=== PATIENT | female | born 1955 | race Caucasian/White ===

== ENCOUNTER 2016-10-10 18:43 | Inpatient (IN) | payer OTHER ==
[~2016-10-10] VITALS: Ht 154.9 cm; Wt 105.9 kg
[~2016-10-10 18:43] MED LIST: ALPRAZOLAM1 M1 PO; ALPRAZOLAM1 MG PO; ASPIRIN325 MG PO; BENTYL20 MG PO; CITRATE OF MAG296 ML PO; CLONAZEPAM0.5 M1 PO; CLONAZEPAM0.5 MG PO; COLACE100 MG PO; CYMBALTA60 MG PO; DOCUSATE SODIU100 MG PO; DULCOLAX5 MG PO; FIBER; FIBER LAXATIVE500 MG PO; FUROSEMIDE40 MG PO; GLIPIZIDE XL5 MG PO; HYDROMORPHONE HC4 MG PO; IMURAN100 MG IV; KEFLEX250 MG PO; KLONOPIN0.5 M1 PO; LASIX40 MG PO; METHADONE PO; METHADONE10 MG PO; MIRALAX255 GM PO; NEXIUM20 MG PO; NYSTATIN15 GM TP; OXYCODONE HCL5 MG PO; PEN-VEE K,VEET500 MG PO; POLYETHYLENE GLY1 GM MC; PRAVACHOL40 MG PO; PREDNISONE20 MG PO; STOOL SOFTENER; TIZANIDINE HCL4 MG PO; TRAZODONE HCL150 MG PO; VITAMIN E400 UNIT PO; XANAX1 MG PO; ZANAFLEX4 M1 PO; ZANTAC150 MG PO; ZITHROMAX500 MG PO; methadone PO
[2016-10-10 21:32] LABS: ADD MIUA? YES; BILIRUBIN NEGATIVE; BLOOD MODERATE; COLOR DK YELLOW ((YELLOW)); GLUCOSE (STRIP) NEGATIVE; KETONES NEGATIVE; LEUKOCYTES MODERATE; NITRITE NEGATIVE; PROTEIN (STRIP) 100; UROBILINOGEN 0.2 MG/DL (0.2-1.0)
[2016-10-10 22:24] LABS: BACTERIA 2+; CASTS NONE SEEN /LPF; CRYSTALS NONE SEEN; EPITHELIAL CELLS 1+; MUCUS 1+; RED BLOOD CELLS 0-5 /HPF (0-5); UCUL ADDED? YES; WHITE BLOOD CELLS 20-30 /HPF (0-5)
[2016-10-10 22:57] LABS: HEMATOCRIT 34.7 % (36.0-46.0); MCH 26.4 PG (29.0-34.0); MCHC 32.3 G/DL (30.0-36.0); MCV 81.8 FL (83-99); MEAN PLAT.VOLUME 9.6 uM^3 (9.5-12.4); PLATELET COUNT 142 K/uL (156-360); RBC DIS.WIDTH-CV 15.1 % (11.8-14.6); RBC DIS.WIDTH-SD 44.9 % (39-53); RED BLOOD COUNT 4.24 M/uL (3.80-5.20); WHITE BLOOD COUNT 15.3 K/uL (4.1-10.2)
[2016-10-10 23:10] LABS: CHLORIDE 98 mEq/L (99-109); POTASSIUM 3.3 mEq/L (3.7-5.4); SODIUM 133 mEq/L (136-147)
[2016-10-10 23:11] LABS: GLUCOSE 98 mg/dL (70-99)
[2016-10-10 23:13] LABS: ANION GAP 10 MEQ/L (2-14)
[2016-10-10 23:15] LABS: GFR ESTIMATE (CALCULATED) > 59 mL/min/
[2016-10-10 23:16] LABS: UREA NITROGEN (BUN) 19 mg/dL (9-23)
[2016-10-11 01:38] VITALS: BP 120/90
[2016-10-11 01:48] VITALS: BP 120/90
[2016-10-11 06:15] LABS: POINT-OF-CARE METER ID UU13113725
[2016-10-11 07:21] VITALS: BP 109/55
[2016-10-11 15:23] VITALS: BP 153/83
[2016-10-11 19:50] VITALS: BP 124/65
[2016-10-11 22:45] LABS: POINT-OF-CARE METER ID UU13113725
[2016-10-11 23:30] LABS: POINT-OF-CARE METER ID UU13113725
[2016-10-11 23:40] VITALS: BP 112/59
[2016-10-12 03:39] VITALS: BP 96/57
[2016-10-12 06:00] LABS: POINT-OF-CARE METER ID UU13113725
[2016-10-12 07:10] LABS: EOSINOPHIL (%) 0.9 % (0-5); EOSINOPHIL COUNT 0.1 K/uL (0-0.3); HEMATOCRIT 31.8 % (36.0-46.0); IMMATURE GRANULOCYTE (%) 0.3 % (0.0-0.7); LYMPHOCYTE COUNT 0.7 K/uL (1.0-2.8); MCH 25.6 PG (29.0-34.0); MCHC 31.4 G/DL (30.0-36.0); MCV 81.5 FL (83-99); MEAN PLAT.VOLUME 9.4 uM^3 (9.5-12.4); MONOCYTE (%) 7.3 % (3-12); MONOCYTE COUNT 0.6 K/uL (0-0.8); NEUTROPHIL (%) 82.2 % (45-76); NEUTROPHIL COUNT 6.3 K/uL (1.8-6.4); PLATELET COUNT 109 K/uL (156-360); RBC DIS.WIDTH-CV 15.6 % (11.8-14.6)
[2016-10-12 07:11] LABS: WHITE BLOOD COUNT 7.6 K/uL (4.1-10.2)
[2016-10-12 07:32] LABS: ANION GAP 7 MEQ/L (2-14); CHLORIDE 102 MEQ/L (99-109); SAMPLE HEMOLYSIS CHECK 0; SAMPLE ICTERIC CHECK 0; SAMPLE LIPEMIA CHECK 0; SODIUM 131 MEQ/L (136-147)
[2016-10-12 07:38] LABS: GFR ESTIMATE (CALCULATED) > 59 mL/min/; GLUCOSE 105 mg/dL (70-99); UREA NITROGEN (BUN) 20 mg/dL (9-23)
[2016-10-12 08:35] VITALS: BP 97/48
[2016-10-12 11:53] LABS: POINT-OF-CARE METER ID UU13113725
[2016-10-12 12:18] LABS: POINT-OF-CARE METER ID UU13113725
[2016-10-12 15:41] LABS: POINT-OF-CARE METER ID UU13113725
[2016-10-12 20:10] VITALS: BP 130/55
[2016-10-13 00:09] VITALS: BP 122/54
[2016-10-13 03:47] VITALS: BP 116/62
[2016-10-13 06:14] LABS: POINT-OF-CARE METER ID UU13113725
[2016-10-13 06:18] LABS: HEMATOCRIT 30.3 % (36.0-46.0); MCV 81.9 FL (83-99); MEAN PLAT.VOLUME 9.4 uM^3 (9.5-12.4); PLATELET COUNT 129 K/uL (156-360); RBC DIS.WIDTH-CV 15.7 % (11.8-14.6); RBC DIS.WIDTH-SD 47.1 % (39-53); WHITE BLOOD COUNT 7.4 K/uL (4.1-10.2)
[2016-10-13 06:49] LABS: ANION GAP 5 MEQ/L (2-14); CHLORIDE 104 MEQ/L (99-109); GFR ESTIMATE (CALCULATED) > 59 mL/min/; GLUCOSE 86 mg/dL (70-99); POTASSIUM 4.3 MEQ/L (3.7-5.4); SAMPLE HEMOLYSIS CHECK 0; SAMPLE ICTERIC CHECK 0; SAMPLE LIPEMIA CHECK 0; SODIUM 134 MEQ/L (136-147); UREA NITROGEN (BUN) 19 mg/dL (9-23)
[2016-10-13 07:15] VITALS: BP 114/57
[2016-10-13 16:07] VITALS: BP 122/57
[2016-10-13 22:57] VITALS: BP 119/58
[2016-10-14 07:15] VITALS: BP 106/55
[2016-10-14] MEDS ORDERED: PEN-VEE K,VEET500 MG PO (16:23)
[2016-10-14 18:00] VITALS: BP 130/67
[2016-10-14 23:00] VITALS: BP 138/72
[2016-10-15 06:20] LABS: POINT-OF-CARE METER ID UU13113725
[2016-10-15 08:09] VITALS: BP 125/61
[2016-10-15 15:41] VITALS: BP 125/66
[2016-10-15 16:59] VITALS: BP 125/66
[2016-10-15 20:45] LABS: POINT-OF-CARE METER ID UU13113725
[2016-10-15 22:45] VITALS: BP 125/68
[2016-10-16 08:00] VITALS: BP 119/81
[2016-10-16 16:00] VITALS: BP 148/62
[2016-10-16 16:21] LABS: POINT-OF-CARE METER ID UU13113725
[2016-10-16 20:47] LABS: POINT-OF-CARE METER ID UU13113725
[2016-10-16 23:06] VITALS: BP 133/58
[2016-10-17 06:11] LABS: POINT-OF-CARE METER ID UU13113725
[2016-10-17 06:41] LABS: POINT-OF-CARE METER ID UU13113725
[2016-10-17 07:58] VITALS: BP 121/60
[2016-10-17 11:25] LABS: POINT-OF-CARE METER ID UU13113725
[2016-10-17 14:12] LABS: POINT-OF-CARE METER ID UU13113725
[2016-10-17 17:03] VITALS: BP 152/85
[2016-10-17 20:41] LABS: POINT-OF-CARE METER ID UU13113725
[2016-10-17 23:07] VITALS: BP 116/71
[2016-10-18 07:19] LABS: HEMATOCRIT 28.8 % (36.0-46.0); MCH 25.6 PG (29.0-34.0); MCHC 31.9 G/DL (30.0-36.0); MEAN PLAT.VOLUME 8.4 uM^3 (9.5-12.4); RBC DIS.WIDTH-CV 16.1 % (11.8-14.6); RBC DIS.WIDTH-SD 47.2 % (39-53)
[2016-10-18 07:21] LABS: PLATELET COUNT 318 K/uL (156-360); WHITE BLOOD COUNT 10.1 K/uL (4.1-10.2)
[2016-10-18 07:36] LABS: ANION GAP 8 MEQ/L (2-14); CHLORIDE 98 MEQ/L (99-109); GFR ESTIMATE (CALCULATED) > 59 mL/min/; GLUCOSE 82 mg/dL (70-99); POTASSIUM 4.4 MEQ/L (3.7-5.4); SAMPLE HEMOLYSIS CHECK 0; SAMPLE ICTERIC CHECK 0; SAMPLE LIPEMIA CHECK 0; SODIUM 132 MEQ/L (136-147); UREA NITROGEN (BUN) 11 mg/dL (9-23)
[2016-10-18 09:03] VITALS: BP 135/87
[2016-10-18] MEDS ORDERED: PEN-VEE K,VEET500 MG PO (09:45)
== END 2016-10-18 11:25 | disposition home or self-care (01) | DRG 602 ==
LOC: RME 18:43 → EME 18:43 → EDOF 23:57 → 5EAST 23:57
PROVIDERS: Hospitalist; Internal Medicine; Nurse Practitioner Family; Physician Assistant
PROC: 0HDNXZZ Extraction of Left Foot Skin, External Approach (ICD-10-PCS; principal; 2016-10-11)
PROC: 0HDNXZZ Extraction of Left Foot Skin, External Approach (ICD-10-PCS; 2016-10-17)
DX: L03.115 Cellulitis of right lower limb (principal); L89.893 Pressure ulcer of other site, stage 3; E87.2 Acidosis; N39.0 Urinary tract infection, site not specified; L97.411 Non-pressure chronic ulcer of right heel and midfoot limited to breakdown of skin; Z68.41 Body mass index [BMI] 40.0-44.9, adult; K50.90 Crohn's disease, unspecified, without complications; E11.621 Type 2 diabetes mellitus with foot ulcer; L89.892 Pressure ulcer of other site, stage 2; E11.42 Type 2 diabetes mellitus with diabetic polyneuropathy; B95.4 Other streptococcus as the cause of diseases classified elsewhere; E87.6 Hypokalemia; F41.9 Anxiety disorder, unspecified; G89.29 Other chronic pain; F17.210 Nicotine dependence, cigarettes, uncomplicated; E66.01 Morbid (severe) obesity due to excess calories; Z90.10 Acquired absence of unspecified breast and nipple; M79.7 Fibromyalgia; Z85.3 Personal history of malignant neoplasm of breast
CPT/HCPCS: 70450; 71010; 73590; 73630; 73718; 80048; 80202; 81003; 82948; 83605; 85025; 85027; 87040; 87077; 87086 GA; 87801; 93971; 97530 GP; 99281; 99285; J0295; J0692; J1170; J1650; J1815; J1885; J2405; J3370; J7030; J7050

== ENCOUNTER 2016-11-08 19:10 | Emergency (ER) | payer OTHER ==
[~2016-11-08] VITALS: Ht 157.5 cm; Wt 100.0 kg
[2016-11-08 21:16] VITALS: BP 127/70
== END 2016-11-08 21:30 | disposition home or self-care (01) ==
LOC: EME 19:10
DX: S91.331A Puncture wound without foreign body, right foot, initial encounter (principal); W26.9XXA Contact with unspecified sharp object(s), initial encounter; L97.421 Non-pressure chronic ulcer of left heel and midfoot limited to breakdown of skin; G89.29 Other chronic pain; Z79.891 Long term (current) use of opiate analgesic; F17.200 Nicotine dependence, unspecified, uncomplicated
CPT/HCPCS: 80076; 83690; 99281; 99284

== ENCOUNTER 2016-11-16 19:39 | Emergency (ER) | payer OTHER ==
[~2016-11-16] VITALS: Ht 162.6 cm; Wt 105.5 kg
[2016-11-16 21:06] LABS: MCH 24.5 PG (29.0-34.0); MCHC 31.3 G/DL (30.0-36.0); MCV 78.3 FL (83-99); MEAN PLAT.VOLUME 8.4 uM^3 (9.5-12.4); PLATELET COUNT 324 K/uL (156-360); RBC DIS.WIDTH-CV 15.3 % (11.8-14.6); RBC DIS.WIDTH-SD 42.2 % (39-53); RED BLOOD COUNT 3.96 M/uL (3.80-5.20); WHITE BLOOD COUNT 15.3 K/uL (4.1-10.2)
[2016-11-16 21:15] LABS: CHLORIDE 98 mEq/L (99-109); POTASSIUM 3.4 mEq/L (3.7-5.4); SODIUM 131 mEq/L (136-147)
[2016-11-16 21:17] LABS: GLUCOSE 129 mg/dL (70-99)
[2016-11-16 21:18] LABS: ANION GAP 9 MEQ/L (2-14)
[2016-11-16 21:21] LABS: ALKALINE PHOSPHATASE 171 IU/L (3-129); GFR ESTIMATE (CALCULATED) > 59 mL/min/
[2016-11-16 21:22] LABS: UREA NITROGEN (BUN) 8 mg/dL (9-23)
[2016-11-16 21:24] LABS: LIPASE 4 U/L (1.0-51.0)
[2016-11-16 23:31] LABS: ADD MIUA? YES; BILIRUBIN NEGATIVE; BLOOD NEGATIVE; COLOR YELLOW ((YELLOW)); GLUCOSE (STRIP) NEGATIVE; KETONES NEGATIVE; LEUKOCYTES TRACE; NITRITE NEGATIVE; PROTEIN (STRIP) 30; SPECIFIC GRAVITY 1.014 (1.000-1.030)
[2016-11-16 23:44] LABS: BACTERIA RARE /HPF; EPITHELIAL CELLS RARE /HPF; MUCUS TRACE /LPF; RED BLOOD CELLS 0-5 /HPF (0-5); UCUL ADDED? NO; WHITE BLOOD CELLS 0-5 /HPF (0-5)
[2016-11-17 01:40] VITALS: BP 109/61
== END 2016-11-17 01:47 | disposition home or self-care (01) ==
LOC: EME 19:39
DX: R10.9 Unspecified abdominal pain (principal); R11.2 Nausea with vomiting, unspecified; S81.801A Unspecified open wound, right lower leg, initial encounter; S81.802A Unspecified open wound, left lower leg, initial encounter; G89.29 Other chronic pain; J44.9 Chronic obstructive pulmonary disease, unspecified; M79.7 Fibromyalgia; I10 Essential (primary) hypertension; K21.9 Gastro-esophageal reflux disease without esophagitis; K50.90 Crohn's disease, unspecified, without complications; Z85.3 Personal history of malignant neoplasm of breast; F17.200 Nicotine dependence, unspecified, uncomplicated
CPT/HCPCS: 74177; 80053; 81003; 83690; 85027; 99281; 99285; J2405

== ENCOUNTER 2016-11-22 16:40 | Emergency (ER) | payer OTHER ==
[~2016-11-22] VITALS: Ht 154.9 cm; Wt 100.1 kg
[2016-11-22 19:26] LABS: MCHC 30.4 G/DL (30.0-36.0); MCV 79.2 FL (83-99); MEAN PLAT.VOLUME 8.4 uM^3 (9.5-12.4); PLATELET COUNT 379 K/uL (156-360); RBC DIS.WIDTH-CV 15.9 % (11.8-14.6); RBC DIS.WIDTH-SD 44.1 % (39-53); RED BLOOD COUNT 3.41 M/uL (3.80-5.20); WHITE BLOOD COUNT 7.4 K/uL (4.1-10.2)
[2016-11-22 19:39] LABS: CHLORIDE 102 mEq/L (99-109); SODIUM 135 mEq/L (136-147)
[2016-11-22 19:41] LABS: GLUCOSE 123 mg/dL (70-99)
[2016-11-22 19:42] LABS: ANION GAP 7 MEQ/L (2-14)
[2016-11-22 19:45] LABS: GFR ESTIMATE (CALCULATED) > 59 mL/min/
[2016-11-22 19:46] LABS: UREA NITROGEN (BUN) 10 mg/dL (9-23)
[2016-11-22 20:12] LABS: SAMPLE HEMOLYSIS CHECK 0; SAMPLE ICTERIC CHECK 0; SAMPLE LIPEMIA CHECK 0
[2016-11-22 20:23] LABS: C-REACTIVE PROTEIN < 1.0 MG/L (0-10)
[2016-11-22] MEDS ORDERED: FUROSEMIDE20 MG PO (20:50)
[2016-11-22] MEDS ORDERED: CENTRUM COMPLE1 EACH PO (20:51)
[2016-11-22 20:52] LABS: ERTH.SED.RATE 62 MM/HR (0-30)
[2016-11-23 00:26] VITALS: BP 116/78
== END 2016-11-23 00:28 | disposition short-term general hospital (02) ==
LOC: EME → EDBD 16:40 → EME 16:40
PROVIDERS: Emergency Medicine
DX: M72.6 Necrotizing fasciitis (principal); B95.8 Unspecified staphylococcus as the cause of diseases classified elsewhere; B95.4 Other streptococcus as the cause of diseases classified elsewhere; I10 Essential (primary) hypertension; F17.200 Nicotine dependence, unspecified, uncomplicated; Z88.6 Allergy status to analgesic agent
CPT/HCPCS: 73701; 80048; 83605; 85027; 85651; 86140; 86850; 86900; 86901; 99281; 99285; J2270; J2543; J3370; J7030